=== PATIENT | female | born 1985 | race Two or more races ===

== ENCOUNTER → 2024-02-20 | Outpatient (CLI) | payer MEDICAID, SELFPAY ==
--- NOTE | 2024-02-20 15:58 | XR_ITS ---
Examination: Abdomen AP single view Technique: AP portable supine abdomen, single view Exam date and time: February 20, 2024 1452 hours INDICATIONS: Onset right flank pain today FINDINGS: Moderate stool in the colon overlying the kidneys Suspicious for 2 mm calculus lower pole left kidney No ureteral calculi, multiple small pelvic phleboliths IMPRESSION: Suspicious for 2 mm lower pole left renal calculus, consider renal sonography follow-up
== END | disposition home or self-care (01) ==
PROVIDERS: PCP Nurse Practitioner Family; Referring Provider Nurse Practitioner Family; Visit Provider Nurse Practitioner Family
DX: R30.0 Dysuria (principal)
CPT/HCPCS: 74018

== ENCOUNTER → 2024-03-27 | Outpatient (CLI) | payer MEDICAID, SELFPAY ==
--- NOTE | 2024-03-27 13:30 | XR_ITS ---
Examination: Retroperitoneal ultrasound, complete Technique: Multiple high resolution grayscale images of the retroperitoneum obtained, including kidneys and bladder. Exam date and time:March 27, 2024 1329 hours INDICATIONS: Left flank pain beginning 1.5 months ago, history urinary tract infection one month ago FINDINGS: Right kidney 12.3 x 4.0 x 4.6 cm renal cortex 1.2 cm 5 mm upper pole calculus Left kidney 12.1 x 4.2 x 4.7 cm renal cortex 2.0 cm Mild bilateral hydronephrosis No bladder mass or bladder calculi Bladder prevoid volume 552 cc postvoid volume 23 cc IMPRESSION: 5 mm upper pole nonobstructing right renal calculus Mild bilateral hydronephrosis
== END | disposition home or self-care (01) ==
PROVIDERS: PCP Nurse Practitioner Family; Visit Provider Nurse Practitioner Family
DX: N20.0 Calculus of kidney (principal); N13.30 Unspecified hydronephrosis
CPT/HCPCS: 76770

== ENCOUNTER → 2024-05-10 | Outpatient (CLI) | payer MEDICAID, SELFPAY ==
[2024-05-09 18:21] LABS: HCG Qualitative,Urine Negative
--- NOTE | 2024-05-10 17:00 | XR_ITS ---
Examination: CT abdomen and pelvis without contrast. Coronal 3-D reconstructions. Sagittal 2-D reconstructions. Date and time of exam:May 10, 2024 1705 hrs. Indications: Bilateral flank pain 3 months CTDI: vol (mGy): 6.32 DLP: (mGycm): 341 Technique: Axial images of the abdomen have been obtained, 3 mm slice thickness Intravenous contrast material has not been administered. Low dose protocols were performed. One or more of the following dose reduction techniques were used; automated exposure control, adjustment of the mA and/or KV according to patient size, use of iterative reconstruction technique. Findings: No focal liver or splenic lesions Absent gallbladder No pancreatic or adrenal mass 2 mm right renal calculus No hydronephrosis or ureteral calculi Aorta normal size Normal appendix No bowel obstruction Anteverted uterus with enlarged fundus No bladder mass or bladder calculi The osseous structures are intact Impression: 2 mm nonobstructing right renal calculus Enlarged fundus of uterus, recommend pelvic sonography follow-up
== END | disposition home or self-care (01) ==
LOC: CCTX 16:40
PROVIDERS: PCP Family Medicine; Referring Provider Nurse Practitioner Family; Visit Provider Nurse Practitioner Family
DX: N20.0 Calculus of kidney (principal); Z32.00 Encounter for pregnancy test, result unknown
CPT/HCPCS: 74176; 81025

== ENCOUNTER 2024-09-13 15:15 | Outpatient (AMB) | payer MEDICAID, SELFPAY ==
--- NOTE | 2024-09-13 15:13 | GYNCLNT_ITS ---
Vital Signs 09/13/24 15:32 Weight 66.451 kg Weight Measurement Method Standing Scale BP 110/77 Blood Pressure Source Automatic Cuff Blood Pressure Location Left Upper Arm Position Sitting Respiration 18 Pulse 83 Pulse Source Monitor Temp 97.2 F Temp Source Oral Pulse Oximetry (%) 97 Oxygen Delivery Method Room Air Allergies/Home Meds Allergies & Medications Allergies No Known Allergies Allergy (Verified 09/13/24 15:33) Medication Reconciliation vit no.95-ferrous fumarate 28 mg-folic acid 800 mcg tablet () 1 tab PO 1XD 03/06/23 [History Confirmed 09/13/24] docusate sodium 100 mg capsule (Colace) 100 mg PO BID #60 caps 03/07/23 [Rx Confirmed 09/13/24] ibuprofen 600 mg tablet 600 mg PO Q6H PRN pain #60 tabs 03/07/23 [Rx Confirmed 09/13/24] lanolin 50 % topical ointment 1 applic topical TID PRN skin irritation #15 tubes 03/07/23 [Rx Confirmed 09/13/24] Intake Visit Data Collection New Patient or Established: Established Patient (seen at [facility] within 3 years) Reason for Visit:: REFERRED BY PCP Seen by Clinical Staff ONLY (RN/MA): No Interdisciplinary Professor Required: Yes Interdisciplinary Professor's name/title: LIVIER GIBBS MA Do You Feel Safe at Home: Yes Authorities Contacted: N/A PCP or OBGYN visit in last 3 months: Yes Hx Now: No Are you currently on any form of Control: No Last menstrual period: 08/13/24 Pain Present Currently: No Pain Scale Used: Mcbride-Huertas/Numerical Pain scale:: 0 Smoking Status Smoking Status: Never smoker 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 Menstrual regularity: regular Flow: normal Monthly: Yes How many days does period last: 5 Age at menarche: 14 Menopausal: No 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 1. Little interest or pleasure in doing things: not at all 2. Feeling down, depressed, or hopeless: not at all Total score: 0 PHQ-9 3. Trouble falling or staying asleep, or sleeping too much: Not at all 4. Feeling tired or having little energy: Not at all 5. Poor appetite or overeating: Not at all 6. Feeling bad about yourself - or that you are a failure or have let yourself or your family down: Not at all 7. Trouble concentrating on things, such as reading the newspaper or watching television: Not at all 8. Moving or speaking so slowly that other people could have noticed? - Or the opposite - being so fidgety or restless that you have been moving around a lot more than usual: not at all 9. Thoughts that you would be better off or of hurting yourself in some way: Not at all Total score: 0 If you checked off any problems, how difficult have these problems made it for you to do your work, take care of things at home, or get along with other people?: not difficult at all Source: Developed by Drs. Pete Rodríguez, Danii Nava, Bandar Wright and colleagues, with an educational luís from [employer]. Depression screen completed yes Social History Living Situation History Marital Status: Single Lives With: Family Housing: House Tobacco History Smoking Status: Never smoker Second Hand Smoke Exposure: No Alcohol History Alcohol Intake: Never Domestic Abuse History Do You Feel Safe at Home: Yes History of Present Illness HPI Narrative 38-year-old female (), presents on referral from [facility] for evaluation of leiomyoma of uterus, unspecified right ovarian cyst, and left ovarian cyst. Her chief complaints are pelvic pain and dyspareunia. The patient reports a history of significant bleeding during some of her deliveries, after which she has not been feeling well. Her menstrual cycles have become irregular, coming 3-4 days early or sometimes later than expected, which is different from her pre- pattern. She experiences pain during intercourse. The patient also reports experiencing weight changes, blurry vision, and seeing spots in her eyes. To manage her pain, the patient has been taking 800mg of ibuprofen as needed. She is seeking a second opinion regarding her condition. The patient's most recent delivery was on March 07, 2023. Obstetric History - GPAL: A0 L4 - history: - Most recent delivery on March 07, 2020 - All four pregnancies resulted in vaginal deliveries - History of significant bleeding during some deliveries Medical History - Non-obstructing right renal calculus (2mm) found on CT scan during ER visit in 2024 - Leiomyoma of uterus (1.6cm) diagnosed on 06/22/2024 - Bilateral simple ovarian cysts diagnosed on 06/22/2024 Medications and Supplements - Ibuprofen 800 mg as needed for pain Social History - Children: Has 4 children Review of Systems General: Positive for weight gain. HEENT: Positive for blurry vision. Genitourinary: Positive for dyspareunia. Laboratory, Imaging, and Diagnostic Test Results - Date: 06/22/2024 - Ultrasound: 1.6 cm uterine leiomyoma, bilateral simple ovarian cysts - CT scan of abdomen and pelvis (05/10/2024): - 2 mm non-obstructing right renal calculus - Enlarged uterine fundus Review of Systems Review of Systems Systems Reviewed: All systems reviewed, normal except as documented Exam General General Appearance: alert, in no apparent distress and healthy appearing Head Head exam: atraumatic Neck Neck exam: Present normal inspection and trachea midline Chest Chest inspection: Present normal inspection and symmetric chest wall rise External exam: Present normal external exam; Absent tenderness Neuro Neurological exam: Present oriented X3 Psych Psychiatric exam: Present normal affect and normal mood Office Procedures OB Clinic LOC & Office Proc's Nursing/Assessment Patient Status: Established Patient OB Clinic Nursing Assessment: Medication Reconciliation, Update PMH in EMR and Vital Signs OB Clinic Coordination of Care: Education Complex Pt/Fam, Consent,records obtained, informed consent, Lab and Imaging orders, Results/Orders obtained and Staff clarify orders Special Needs: Language special needs Established Patient Charge Established Patient Point Assignment: 85 Established Patient Point Charge: EP Level 3 (80-115) Assessment & Plan Diagnosis / Problem List (1) Abnormal uterine and vaginal bleeding, unspecified: Status: Acute (2) Intramural leiomyoma of uterus: Status: Acute (3) Pelvic and perineal pain: Status: Acute (4) Dyspareunia due to medical condition in female: Status: Acute Plan 38-year-old female, , presenting with pelvic pain, dyspareunia, and irregular menstrual cycles, referred for evaluation of uterine leiomyoma and bilateral ovarian cysts. Pelvic pain and dyspareunia Assessment: Patient reports pelvic pain and dyspareunia. Onset appears to be related to period following last delivery in February 2023. Pain is managed with ibuprofen 800 mg PRN. Recent imaging (CT abdomen/pelvis from ER visit in April 2024) showed enlarged uterine fundus. Ultrasound from June 2024 revealed a 1.6 cm uterine leiomyoma and bilateral simple ovarian cysts. Differential diagnoses include leiomyoma-related pain, ovarian cyst complications, hormonal changes, and potential early perimenopausal symptoms. Plan: - Order pelvic ultrasound to reassess uterine leiomyoma and ovarian cysts - Order hormone panel blood tests to be done on day 1 or 2 of next menstrual cycle - Schedule follow-up appointment to review test results and discuss treatment plan Irregular menstrual cycles Assessment: Patient reports irregular menstrual cycles, with periods coming 3-4 days early or late. This is a change from her pre- menstrual pattern. Given her age (38) and reported symptoms (weight changes, blurry vision), we need to evaluate for potential perimenopausal changes or other hormonal imbalances. Plan: - Order hormone panel blood tests to be done on day 1 or 2 of next menstrual cycle - Evaluate results to determine cause of menstrual irregularities - Discuss findings and potential treatment options at follow-up appointment Uterine leiomyoma Assessment: Previous ultrasound from June 2024 showed a 1.6 cm uterine leiomyoma. This finding may be contributing to the patient's pelvic pain and menstrual irregularities. A repeat ultrasound is necessary to assess for any changes in size or characteristics. Plan: - Order pelvic ultrasound to reassess uterine leiomyoma - Compare new imaging with previous studies - Discuss management options based on updated findings at follow-up appointment Bilateral ovarian cysts Assessment: Ultrasound from June 2024 revealed bilateral simple ovarian cysts. These cysts may be contributing to the patient's pelvic pain and dyspareunia. A repeat ultrasound is necessary to evaluate for any changes or complications. Plan: - Order pelvic ultrasound to reassess ovarian cysts - Compare new imaging with previous studies - Discuss management options based on updated findings at follow-up appointment
[2024-09-13 15:32] VITALS: BP 110/77; PULSE 83; RESP 18; TEMP 36.2; O2SAT 97
== END 2024-09-13 15:47 | disposition home or self-care (01) ==
LOC: HODSOBC 15:15
PROVIDERS: PCP Family Medicine; Referring Provider Family Medicine; Supervising Provider Obstetrics & Gynecology; Visit Provider Obstetrics & Gynecology
DX: D25.1 Intramural leiomyoma of uterus (principal); N93.9 Abnormal uterine and vaginal bleeding, unspecified; N83.292 Other ovarian cyst, left side; N83.291 Other ovarian cyst, right side; N94.10 Unspecified dyspareunia
CPT/HCPCS: 99213; G0463

== ENCOUNTER → 2024-10-05 | Outpatient (CLI) | payer MEDICAID, SELFPAY ==
--- NOTE | 2024-10-05 15:45 | XR_ITS ---
Examination: Pelvic ultrasound, transabdominal, complete Technique: Transabdominal ultrasound of the pelvis performed using grayscale imaging Date and time of exam: October 05, 2024 1539 hours INDICATIONS: Pelvic pain and irregular menses one year, enlarged fundus of uterus on CT pelvis May 10, 2024 FINDINGS: Uterus 14.2 cm but no discrete uterine masses Endometrial stripe 1.2 cm Right ovary 3.1 cm arterial flow Left ovary 2.5 cm arterial flow No fluid in the cul-de-sac IMPRESSION: Diffusely enlarged uterus but no discrete uterine masses No intrauterine gestation
== END | disposition home or self-care (01) ==
LOC: CDIM 15:20
PROVIDERS: PCP Obstetrics & Gynecology; Referring Provider Obstetrics & Gynecology; Visit Provider Obstetrics & Gynecology
DX: N85.2 Hypertrophy of uterus (principal)
CPT/HCPCS: 76856

== ENCOUNTER 2024-11-07 11:01 | Outpatient (AMB) | payer MEDICAID, SELFPAY ==
[2024-11-07 11:24] VITALS: BP 118/80; PULSE 68; RESP 17; TEMP 36.7; O2SAT 98; BMI 27.2
--- NOTE | 2024-11-07 11:24 | AMB.GYNCLNOT ---
Vital Signs 11/07/24 11:24 Height 1.57 m Height Method Measured Weight 67.642 kg Weight Measurement Method Standing Scale BMI 27.2 BP 118/80 Blood Pressure Source Automatic Cuff Blood Pressure Location Right Upper Arm Position Sitting Respiration 17 Pulse 68 Pulse Source Monitor Temp 98.1 F Temp Source Temporal Artery Scan Pulse Oximetry (%) 98 Oxygen Delivery Method Room Air Allergies/Home Meds Allergies & Medications Allergies No Known Allergies Allergy (Verified 11/07/24 11:25) Medication Reconciliation vit no.95-ferrous fumarate 28 mg-folic acid 800 mcg tablet () 1 tab PO 1XD 03/06/23 [History Confirmed 11/07/24] docusate sodium 100 mg capsule (Colace) 100 mg PO BID #60 caps 03/07/23 [Rx Confirmed 11/07/24] ibuprofen 600 mg tablet 600 mg PO Q6H PRN pain #60 tabs 03/07/23 [Rx Confirmed 11/07/24] lanolin 50 % topical ointment 1 applic topical TID PRN skin irritation #15 tubes 03/07/23 [Rx Confirmed 11/07/24] Intake Visit Data Collection New Patient or Established: Established Patient (seen at [facility] within 3 years) Reason for Visit:: FOLLOW UP LABS\US RESULTS Consent obtained for Telemed Visit: No Seen by Clinical Staff ONLY (RN/MA): No Shoe Designer Required: Yes Shoe Designer's name/title: LIVIER BARTHOLOMEW Do You Feel Safe at Home: Yes Authorities Contacted: N/A PCP or OBGYN visit in last 3 months: Yes Date of Last PCP or OBGYN visit: 09/13/24 Hx Now: No Are you currently on any form of Control: No Last menstrual period: 10/15/24 Pain Present Currently: No Pain Scale Used: Mcbride-Huertas/Numerical Pain scale:: 0 Smoking Status Smoking Status: Never smoker 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 Menstrual regularity: regular Flow: normal Monthly: Yes How many days does period last: 5 Age at menarche: 14 Menopausal: No 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 1. Little interest or pleasure in doing things: not at all PHQ-9 8. Moving or speaking so slowly that other people could have noticed? - Or the opposite - being so fidgety or restless that you have been moving around a lot more than usual: not at all Source: Developed by Drs. Pete Rodríguez, Danii Nava, Bandar Wright and colleagues, with an educational luís from [employer]. Social History Living Situation History Lives With: Family Housing: House Tobacco History Smoking Status: Never smoker Second Hand Smoke Exposure: No Alcohol History Alcohol Intake: Never Domestic Abuse History Do You Feel Safe at Home: Yes History of Present Illness HPI Narrative Erna Stover presents for review of lab results following previous complaints of pelvic pain, abnormal uterine bleeding, and uterine leiomyomas. She reports experiencing significant pain during sexual intercourse and when her abdomen is impacted, such as when her children hit her in that area. The patient mentions a history of prolonged bleeding lasting up to 7 months, which may have started during or after a . The patient's symptoms appear to be consistent with adenomyosis, as explained by the clinician. This condition affects the patient's quality of life, particularly in relation to sexual activity and physical contact in the abdominal area. The exact onset of her symptoms is not clearly stated, but there is an indication that the changes may have occurred during or after a . She is a patient with an obstetric history of A0 L1. She has one that lasted for 7 months, resulting in a live . The patient has children and reports pain during intercourse. ROS: Genitourinary: Positive for pelvic pain, abnormal uterine bleeding. Musculoskeletal: Positive for abdominal pain when touched. Exam General General Appearance: alert, in no apparent distress and healthy appearing Head Head exam: atraumatic Neck Neck exam: Present normal inspection and trachea midline Chest Chest inspection: Present normal inspection and symmetric chest wall rise External exam: Present normal external exam; Absent tenderness Neuro Neurological exam: Present oriented X3 Psych Psychiatric exam: Present normal affect and normal mood Office Procedures OB Clinic LOC & Office Proc's Nursing/Assessment Patient Status: Established Patient OB Clinic Nursing Assessment: Medication Reconciliation, Update PMH in EMR and Vital Signs OB Clinic Coordination of Care: Complex Care and Chronic Disease 1-5, Consent,records obtained, informed consent, 4+ Authorizations needed, Lab and Imaging orders and Results/Orders obtained Established Patient Charge Established Patient Point Assignment: 105 Established Patient Point Charge: Level 3 (80-115) Assessment & Plan Diagnosis / Problem List (1) Dyspareunia due to medical condition in female: Status: Acute (2) Pelvic and perineal pain: Status: Acute Plan Adenomyosis: - Pelvic pain, abnormal uterine bleeding, and pain during intercourse and abdominal impact. - Ultrasound findings of enlarged uterus without distinct fibroids. - Previously diagnosed leiomyomas of the uterus. - Condition described as irreversible, likely developing during or after . Plan: - Discuss two treatment options: ? Hysterectomy (surgical removal of uterus) - Permanent cure - Unable to have children post-surgery - Ovaries to be preserved to maintain hormonal function - Expected recovery time of approximately one month ? Hormone suppression therapy (Lupron, GnRH agonist) - Temporary induced menopause-like state - 6-month course of injections - Expected relief for up to 3 years - Potential side effects: initial hot flushes, cessation of menstruation - Uterus expected to shrink significantly - Advise patient to consider options and discuss with . - Schedule follow-up appointment after patient makes decision.
== END 2024-11-07 11:34 | disposition home or self-care (01) ==
LOC: HODSOBC 11:01
PROVIDERS: Supervising Provider Obstetrics & Gynecology; Visit Provider Obstetrics & Gynecology
DX: N94.19 Other specified dyspareunia (principal); R10.2 Pelvic and perineal pain
CPT/HCPCS: 99213; G0463

== ENCOUNTER → 2024-11-28 | Outpatient (CLI) | payer MEDICAID, SELFPAY ==
--- NOTE | 2024-11-28 16:40 | XR_ITS ---
Examination: Abdomen AP single view Technique: AP portable supine abdomen, single view Exam date and time: November 28, 2024, 1700 hours INDICATIONS: Abdominal pain beginning 2 months ago. FINDINGS: Moderate to large amounts of stool throughout the colon. No renal calculi depicted. No free air. Surgical clips upper right abdomen. IMPRESSION: Consider renal sonography follow-up to best assess for renal calculi
== END | disposition home or self-care (01) ==
PROVIDERS: PCP Specialist; Referring Provider Surgery; Visit Provider Surgery
DX: N20.0 Calculus of kidney (principal)
CPT/HCPCS: 74018

== ENCOUNTER 2024-12-26 08:43 | Outpatient (AMB) | payer MEDICAID, SELFPAY ==
[2024-12-26 08:54] VITALS: BP 121/84; PULSE 72; RESP 17; TEMP 36.6; O2SAT 98; BMI 27.8
--- NOTE | 2024-12-26 08:54 | AMB.GYNCLNOT ---
Vital Signs 12/26/24 08:54 Height 1.57 m Height Method Stated Weight 68.549 kg Weight Measurement Method Standing Scale BMI 27.8 BP 121/84 Blood Pressure Source Automatic Cuff Blood Pressure Location Right Upper Arm Position Sitting Respiration 17 Pulse 72 Pulse Source Monitor Temp 97.9 F Temp Source Temporal Artery Scan Pulse Oximetry (%) 98 Allergies/Home Meds Allergies & Medications Allergies No Known Allergies Allergy (Verified 12/26/24 08:56) Medication Reconciliation No Known Home Medications 12/25/24 [History Confirmed 12/26/24] Intake Visit Data Collection New Patient or Established: Established Patient (seen at [facility] within 3 years) Reason for Visit:: PREOP 12/27/24 Seen by Clinical Staff ONLY (RN/MA): No Plastic Frame Inserter Required: Yes Plastic Frame Inserter's name/title: LIVIER GIBBS MA Do You Feel Safe at Home: Yes Authorities Contacted: N/A PCP or OBGYN visit in last 3 months: Yes Date of Last PCP or OBGYN visit: 12/25/24 Hx Now: No Are you currently on any form of Control: No Last menstrual period: 12/19/24 Pain Present Currently: Yes Pain Location: Abdomen Pain Scale Used: Mcbride-Huertas/Numerical Pain scale:: 3 Smoking Status Smoking Status: Never smoker 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 History Menstrual regularity: regular Flow: normal Monthly: Yes How many days does period last: 4 Age at menarche: 14 Currently sexually active: Yes 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 1. Little interest or pleasure in doing things: not at all 2. Feeling down, depressed, or hopeless: not at all Total score: 0 PHQ-9 3. Trouble falling or staying asleep, or sleeping too much: Not at all 4. Feeling tired or having little energy: Not at all 5. Poor appetite or overeating: Not at all 6. Feeling bad about yourself - or that you are a failure or have let yourself or your family down: Not at all 7. Trouble concentrating on things, such as reading the newspaper or watching television: Not at all 8. Moving or speaking so slowly that other people could have noticed? - Or the opposite - being so fidgety or restless that you have been moving around a lot more than usual: not at all 9. Thoughts that you would be better off or of hurting yourself in some way: Not at all Total score: 0 If you checked off any problems, how difficult have these problems made it for you to do your work, take care of things at home, or get along with other people?: not difficult at all Source: Developed by Drs. Pete Rodríguez, Danii Nava, Bandar Wright and colleagues, with an educational luís from [employer]. Depression screen completed yes Social History Living Situation History Marital Status: Lives With: Family Housing: House Tobacco History Smoking Status: Never smoker Second Hand Smoke Exposure: No Alcohol History Alcohol Intake: Never Domestic Abuse History Do You Feel Safe at Home: Yes History of Present Illness HPI Narrative Abby Stover presents for pre-operative evaluation prior to a scheduled total abdominal hysterectomy and bilateral salpingectomy. The patient's primary indications for surgery are symptomatic leiomyomas, pelvic pain, and severe dyspareunia. The patient has been previously counseled about all treatment options and has declined medical intervention, opting for surgical management. She is scheduled for surgery tomorrow, which will involve an abdominal incision smaller than a typical incision. The surgical plan includes preserving the ovaries, with the removal of a cyst while saving the affected ovary. This approach aims to prevent premature menopause, given the patient's age under 40 years. The patient has completed her pre-admission procedures and appears prepared for the upcoming surgery. She is expected to stay in the hospital until Tuesday morning, with a possibility of discharge on Tuesday if her recovery progresses exceptionally well. A two-month disability period has been initially planned, with the option to adjust as needed based on her recovery progress. She has a history of one prior delivery. The patient is scheduled for disability leave for 2 months following surgery. ROS: Genitourinary: Positive for pelvic pain, severe dyspareunia. Exam General General Appearance: alert, in no apparent distress and healthy appearing Head Head exam: atraumatic Neck Neck exam: Present normal inspection and trachea midline Chest Chest inspection: Present normal inspection and symmetric chest wall rise External exam: Present normal external exam; Absent tenderness Neuro Neurological exam: Present oriented X3 Psych Psychiatric exam: Present normal affect and normal mood Office Procedures OBC Clinic LOC & Office Proc's Nursing/Assessment Patient Status: Established Patient OB Clinic Nursing Assessment: Medication Reconciliation, Update PMH in EMR and Vital Signs OB Clinic Coordination of Care: Complex Care and Chronic Disease 1-5, Education Complex Pt/Fam, Consent,records obtained, informed consent and Staff clarify orders Established Patient Charge Established Patient Point Assignment: 90 Established Patient Point Charge: EP Level 3 (80-115) Assessment & Plan Diagnosis / Problem List (1) Dyspareunia due to medical condition in female: Status: Acute (2) Pelvic and perineal pain: Status: Acute Plan Symptomatic Uterine Leiomyomas: - Patient has symptomatic uterine leiomyomas causing pelvic pain and severe dyspareunia. - Previously counseled about all treatment options and declined medical intervention, opting for surgical management. Plan: - Total abdominal hysterectomy scheduled for tomorrow morning. - Preserve ovaries given patient age under 40 to avoid premature menopause. - Expected hospital stay until Tuesday morning, possible Tuesday discharge if doing exceptionally well. - Two-month disability period planned, with option to release sooner or extend as needed. Ovarian Cyst: - Patient has an ovarian cyst that will be addressed during planned hysterectomy. Plan: - Remove cyst during hysterectomy while preserving ovary.
== END 2024-12-26 09:37 | disposition home or self-care (01) ==
LOC: HODSOBC 08:43
PROVIDERS: Supervising Provider Obstetrics & Gynecology; Visit Provider Obstetrics & Gynecology
DX: D25.9 Leiomyoma of uterus, unspecified (principal); N94.19 Other specified dyspareunia; N83.209 Unspecified ovarian cyst, unspecified side
CPT/HCPCS: 99213; G0463

== ENCOUNTER 2024-12-27 06:20 | Inpatient (IN) | payer MEDICAID, SELFPAY ==
[2024-12-25 07:01] VITALS: BMI 26.4
[2024-12-25 08:24] LABS: Basophils # (Auto) 0.0 Thou/mm3 (0.0-0.2); Basophils % (Auto) 1 % (0-2.5); Eosinophils # (Auto) 0.1 Thou/mm3 (0.0-0.5); Eosinophils % (Auto) 2 % (0-10); Hematocrit 37.1 % (36.0-46.0); Hemoglobin 11.7 g/dL (12.0-16.0); Immature Granulocytes Auto 0.01 Thou/mm3 (0.00-0.00); Lymphocytes # (Auto) 1.9 Thou/mm3 (1.0-4.8); Lymphocytes % (Auto) 49 % (10-50); Mean Corpuscular HGB Conc 31.5 g/dl (31.0-37.0); Mean Corpuscular Hemoglobin 28.5 pg (25.0-35.0); Mean Corpuscular Volume 90 fL (80-100); Monocytes # (Auto) 0.2 Thou/mm3 (0.0-0.8); Monocytes % (Auto) 6 % (0-12); Neutrophils # (Auto) 1.6 Thou/mm3 (1.8-7.7); Neutrophils % (Auto) 42 % (37-80); Nucleated Red Blood Cell # 0.00 Thou/mm3 (0.00-0.00); Nucleated Red Blood Cell % 0 /100 WBC (0); Platelet Count 207 Thou/mm3 (140-440); RDW Standard Deviation 45.3 fL (36.4-46.3); Red Blood Count 4.11 Miln/mm3 (4.00-5.20); White Blood Count 3.9 Thou/mm3 (3.6-11.0)
[2024-12-25 08:31] LABS: HCG,Qualitative Serum Negative
[2024-12-25 08:42] LABS: Alanine Aminotransferase 8 U/L (10-49); Albumin, Serum 4.4 gm/dL (3.5-5.0); Albumin/Globulin Ratio 1.6 (1.2-2.2); Alkaline Phosphatase 37 U/L (46-116); Anion Gap 9 (7-16); Aspartate Amino Transferase 15 U/L (0-34); BUN/Creatinine Ratio 18 Ratio (12-20); Bilirubin,Total 0.6 mg/dL (0.3-1.2); Blood Urea Nitrogen 14 mg/dL (9-23); Calcium 9.1 mg/dL (8.3-10.6); Calcium (Corrected) 9.1 mg/dL (8.5-10.1); Carbon Dioxide 26.2 mMol/L (20.0-31.0); Chloride 108 mMol/L (98-107); Creatinine (Component) 0.8 mg/dL (0.6-1.3); Estimated Creatinine Clearance 91.4 mL/min (>60); Globulin 2.8 gm/dL (2.3-3.5); Glucose 89 mg/dL (74-106); Osmolality,Calculated 284 (275-295); Potassium 3.9 mMol/L (3.4-5.1); Sodium 143 mMol/L (136-145); Total Protein 7.2 gm/dL (5.7-8.2); eGFR > 60 See Note
[2024-12-27] VITALS (10 sets, daily range): BP systolic 101–121; BP diastolic 62–91; PULSE 66–94; RESP 12–20; TEMP 36.1–36.7; O2SAT 95–100; BMI 25.9; BMI 25.7
--- NOTE | 2024-12-27 09:45 | ESOP_ITS ---
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 Identity was confirmed using two patient identifiers. General anesthesia was administered, and the patient was placed in the supine position. The abdomen and perineum were prepped and draped in the usual sterile fashion. A Guerrero catheter was inserted for continuous bladder drainage. A surgical timeout was completed. A Pfannenstiel skin incision was made and carried sharply through the subcutaneous tissue. The rectus fascia was incised in the midline and extended laterally using Chamberlain scissors. The fascia was dissected off the underlying rectus muscle using sharp dissection. The peritoneum was entered bluntly. An Ferdinand retractor was placed for exposure. The uterus was grasped with a double- toothed tenaculum and placed under traction. The pelvic anatomy was reviewed, and the bowel was packed away from the operative field. The patient was placed in Trendelenburg position for improved visualization. Dissection was initiated on the right side. The right fallopian tube was dissected and divided, followed by the right utero-ovarian ligament, and then the right round ligament. The anterior peritoneum was opened, and the bladder flap was developed anteriorly using sharp and blunt dissection. Attention was then turned to the left side. The left round ligament was divided, and the bladder flap was further developed to completely reflect the bladder inferiorly. The left utero-ovarian ligament was then divided, followed by dissection and division of the left fallopian tube. Dissection was now carried down both sides of the uterus. On the right, dissection continued until the uterine artery was skeletonized, clamped, and divided. The same procedure was performed on the left side. Once the level of the cervix was reached, a pair of Z-clamps were placed across the cervix, and the uterus was amputated using Logan scissors. The vaginal angles were ligated separately using 0-Vicryl in a Jeramie stitch fashion. The remaining vaginal cuff was closed in a running locked fashion using 0-Vicryl. The cuff was copiously irrigated and noted to be hemostatic, and Surgicel was placed over the suture line. All instruments were withdrawn. The peritoneal cavity was suctioned and dried. The rectus fascia was closed using 0-Vicryl in a running fashion. The subcutaneous layer was reapproximated using 2-0 Vicryl, and the skin was closed using 4-0 Monocryl in a subcuticular fashion. A Dermabond Prineo dressing was applied. The patient was awakened from anesthesia and transferred to the recovery unit in stable condition. She tolerated the procedure well. All instrument, sponge, and lap counts were correct ?2. Specimen: uterus, left tube and right tube Estimated blood loss (ml): 150 Complications: none Surgical staff Operation Date: 12/27/24 08:30 Case Staff EPIC KALEIDOSCOPE ANALYST: Raymundo Roche RN First Assistant: Tammy Capone Diagnosis Discharge Diagnosis (1) Dyspareunia due to medical condition in female: Status: Acute (2) Pelvic and perineal pain: Status: Acute (3) Abnormal uterine and vaginal bleeding, unspecified: Status: Acute (4) Intramural leiomyoma of uterus: Status: Acute Problem List Completed Was Problem List Reviewed/Reconciled?: Yes
--- NOTE | 2024-12-27 10:00 | SUR.PHASEI ---
1000: Pt. AAOX4, vitals stable, breathing unlabored, no complaint of pain or nausea, dressing to ABD CDI, no active bleed noted, ABD Binder in place, peripad in place with scant amount of blood, daniel catheter in place, report received from Zechariah ROLLE and Debra ROE.
[2024-12-27] MEDS: HYDROmorphone INJ 2 MG/ML VIAL 0.4 MG IVP ×3 (10:14→10:37)
[2024-12-27] MEDS: SODIUM CHLORIDE 0.9% 1000 ML 1,000 ML 200 ML IV ×3 (10:27→21:18)
--- NOTE | 2024-12-27 10:55 | SUR.PHASEI ---
1055: Pt. AAOx4, vitals stable, breathing unlabored, no complaint of pain or nausea, dressing to ABD CDI, peripad in place CDI, no active bleed noted, daniel catheter in place, pt. tolerated bites of ice chips well, gave report to Kaylin ROE prior to transfer to room, family made aware of transfer to room. Pt. transferred with all personal belongings.
[2024-12-27] MEDS: ONDANSETRON INJ 2 MG/ML INJ 2 ML 4 MG IV ×2 (11:21→23:33)
[2024-12-27] MEDS: HYDROMORPHONE HCL 2 MG TABLET PO ×2 (13:55→21:17)
[2024-12-27] MEDS: Milk Of Magnesia Susp 30 ML UDC PO (13:55)
[2024-12-27] MEDS: ACETAMINOPHEN IVPB 1,000 MG/100 ML VIAL 250 MG IV ×2 (16:09→22:02)
[2024-12-27] MEDS: PROMETHAZINE INJ 25 MG in SODIUM CHLORIDE 0.9% 50 ML IV (17:37)
[2024-12-28] VITALS (7 sets, daily range): BP systolic 94–118; BP diastolic 66–82; PULSE 71–86; RESP 18–97; TEMP 36.4–37.3; O2SAT 95–98
[2024-12-28] MEDS: ACETAMINOPHEN IVPB 1,000 MG/100 ML VIAL 250 MG IV (03:46)
[2024-12-28] MEDS: SODIUM CHLORIDE 0.9% 1000 ML 1,000 ML 200 ML IV (03:48)
[2024-12-28 05:49] LABS: Basophils # (Auto) 0.0 Thou/mm3 (0.0-0.2); Basophils % (Auto) 0 % (0-2.5); Eosinophils # (Auto) 0.0 Thou/mm3 (0.0-0.5); Eosinophils % (Auto) 0 % (0-10); Hematocrit 29.2 % (36.0-46.0); Hemoglobin 9.3 g/dL (12.0-16.0); Immature Granulocytes Auto 0.01 Thou/mm3 (0.00-0.00); Lymphocytes # (Auto) 1.5 Thou/mm3 (1.0-4.8); Lymphocytes % (Auto) 32 % (10-50); Mean Corpuscular HGB Conc 31.8 g/dl (31.0-37.0); Mean Corpuscular Hemoglobin 28.8 pg (25.0-35.0); Mean Corpuscular Volume 90 fL (80-100); Monocytes # (Auto) 0.4 Thou/mm3 (0.0-0.8); Monocytes % (Auto) 8 % (0-12); Neutrophils # (Auto) 2.9 Thou/mm3 (1.8-7.7); Neutrophils % (Auto) 60 % (37-80); Nucleated Red Blood Cell # 0.00 Thou/mm3 (0.00-0.00); Nucleated Red Blood Cell % 0 /100 WBC (0); Platelet Count 152 Thou/mm3 (140-440); RDW Standard Deviation 46.1 fL (36.4-46.3); Red Blood Count 3.23 Miln/mm3 (4.00-5.20); White Blood Count 4.8 Thou/mm3 (3.6-11.0)
[2024-12-28 06:03] LABS: Anion Gap 8 (7-16); BUN/Creatinine Ratio 9 Ratio (12-20); Blood Urea Nitrogen 6 mg/dL (9-23); Calcium 7.7 mg/dL (8.3-10.6); Carbon Dioxide 24.3 mMol/L (20.0-31.0); Chloride 112 mMol/L (98-107); Creatinine (Component) 0.7 mg/dL (0.6-1.3); Estimated Creatinine Clearance 103.6 mL/min (>60); Glucose 94 mg/dL (74-106); Osmolality,Calculated 284 (275-295); Potassium 3.8 mMol/L (3.4-5.1); Sodium 144 mMol/L (136-145); eGFR > 60 See Note
[2024-12-28] MEDS: ONDANSETRON INJ 2 MG/ML INJ 2 ML 4 MG IV (08:56)
[2024-12-28] MEDS: DOCUSATE SOD 100 MG CAPSULE PO (08:57)
[2024-12-28] MEDS: Milk Of Magnesia Susp 30 ML UDC PO (08:57)
[2024-12-28] MEDS: HYDROcodone/APAP 5/325 TABLET 1 TAB PO (08:57)
--- NOTE | 2024-12-28 09:52 | PD.GYNPROG ---
Documentation for date of: 12/28/24 CLINICAL PROJECT LEADER Subjective Subjective Interval history: Patient doing well this morning. Pain is adequately controlled on the current regimen. No incisional complaints, no chest pain, shortness of breath, breathing difficulties. Ambulating, tolerating p.o., Adequate UOP Exam Vital Signs Temp Pulse Resp BP Pulse Ox O2 Del Method O2 Flow Rate 97.5 F 72 18 118/82 98 Room Air 2 12/28/24 08:00 12/28/24 08:00 12/28/24 08:00 12/28/24 08:00 12/28/24 08:00 12/28/24 08:00 12/27/24 10:15 Constitutional Constitutional: no acute distress Routine HEENT Exam Head: Present normocephalic and atraumatic Eye: Present EOMI and PERRL ENT: Present mucous membranes moist Routine Neck Exam Neck: Present supple and trachea midline Routine Respiratory Exam Respiratory: Present chest non-tender, lungs clear, normal breath sounds and no resp distress Routine Cardiovascular Exam Cardiovascular: Present RRR Routine Abdominal Exam Abdominal: Present soft and normoactive bowel sounds Routine Extremities Exam Extremities: Present full ROM Routine Skin Exam Skin: Present intact and dry Routine Neurological Exam Neurological: Present alert, oriented X3 and CN II-XII intact Routine Psychiatric Exam Psychiatric: Present normal affect and normal thought process Urinary Catheter Management Cath placed during this visit: yes, but has since been removed by the nurse Removal date: 12/28/24 Removal time: 06:15 CLINICAL PROJECT LEADER - PN: Obj Data Labs 12/28/24 04:55 12/28/24 04:55 Labs: Laboratory Results - last 24 hr 12/28/24 04:55 WBC 4.8 RBC 3.23 L Hgb 9.3 L D Hct 29.2 L MCV 90 MCH 28.8 MCHC 31.8 RDW Std Deviation 46.1 Plt Count 152 D Neut % (Auto) 60 Lymph % (Auto) 32 [facility] % (Auto) 8 Eos % (Auto) 0 Baso % (Auto) 0 Neut # (Auto) 2.9 Lymph # (Auto) 1.5 [facility] # (Auto) 0.4 Eos # (Auto) 0.0 Baso # (Auto) 0.0 Immature Gran # (Auto) 0.01 H Absolute Nucleated RBC 0.00 Immature Gran % 0 Nucleated RBC % 0 Sodium 144 Potassium 3.8 Chloride 112 H Carbon Dioxide 24.3 Anion Gap 8 BUN 6 L Creatinine 0.7 Estim Creat Clear Calc 103.6 eGFR > 60 BUN/Creatinine Ratio 9 L Glucose 94 Calculated Osmolality 284 Calcium 7.7 L CLINICAL PROJECT LEADER - A/P Assessment and plan (1) Dyspareunia due to medical condition in female: Status: Acute (2) Pelvic and perineal pain: Status: Acute (3) Abnormal uterine and vaginal bleeding, unspecified: Status: Acute (4) Intramural leiomyoma of uterus: Status: Acute (5) S/P DAKOTAH (total abdominal hysterectomy): Status: Acute Assessment and plan: Patient is postoperative day #1. Doing well and meeting postoperative milestones. Will transition to oral pain medications, Guerrero catheter has been removed and she has been voiding Labs are appropriate for her postoperative status Encouraged to ambulate, encourage oral intake. Discharge pending return of bowel function Postoperative Procedures: Procedures Operation Date: 12/27/24 08:30 Actual Procedure Side Surgeon p Hysterectomy, Abdominal, Bilateral Salpingectomy Vel Ohara MD Time Spent With Patient Time: Total time spent is greater than 50% in coordination of care (as documented) at patient's floor/unit and/or counseling patient: Time with patient: less than 15 minutes
[2024-12-28] MEDS: KETOROLAC INJ 30 MG/ML VIAL IVP ×2 (11:24→17:01)
--- NOTE | 2024-12-28 12:22 | CHAP ---
Patient was visited by the Spiritual Care Volunteer from whom they received communion. (Volunteer was in the hospital from 10:20-12:22)
--- NOTE | 2024-12-28 15:09 | PC.NURSE ---
Per Dr. Ohara, discharge patient at [phone]. Patient aware.
--- NOTE | 2024-12-28 16:03 | PC.SS ---
SS met with patient who is alert/oriented. Patient was able to verify demographics. Patient is Polish speaking only. Patient is independent with ADL's. Patient had surgery for hysterectomy yesterday. Patient stable. Patient will discharge home with family. PCP: Dr. Ambriz. No Dc needs.
--- NOTE | 2024-12-28 17:41 | PC.NURSE ---
Patient was discharged at 1716. IV removed. All discharge papers signed. Patient verbalized understanding and all questions were answered.
--- NOTE | 2024-12-30 12:22 | CHAP ---
Patient was visited by the Spiritual Care Volunteer who prayed silently for them. (Volunteer was in the hospital from 10:20-12:22).
== END 2024-12-28 17:16 | disposition home or self-care (01) | DRG 519 ==
LOC: S2W1 06:36 → S3SX 11:13
PROVIDERS: Admitting Provider Obstetrics & Gynecology; PCP Family Medicine; Visit Provider Obstetrics & Gynecology
PROC: 0UT90ZZ Resection of Uterus, Open Approach (ICD-10-PCS; principal; 2024-12-27 08:30)
DX: D25.1 Intramural leiomyoma of uterus (principal); N80.03 Adenomyosis of the uterus
CPT/HCPCS: 36415; 80048; 80053; 84703; 85025; 86850; 86900; 86901; A4217; A4649; J0131; J0690; J1171; J1885; J2250; J2274; J2405; J2550; J2704; J3010; J3490; J7030; A9270; J1596; J2270

== ENCOUNTER 2025-01-09 09:55 | Outpatient (AMB) | payer MEDICAID, SELFPAY ==
[2025-01-09 10:19] VITALS: BP 120/71; PULSE 102; RESP 18; TEMP 36.2; O2SAT 98
--- NOTE | 2025-01-09 10:19 | GYNCLNT_ITS ---
Vital Signs 01/09/25 10:19 Weight 68.492 kg Weight Measurement Method Standing Scale BP 120/71 Blood Pressure Source Automatic Cuff Blood Pressure Location Left Upper Arm Position Sitting Respiration 18 Pulse 102 H Pulse Source Monitor Temp 97.2 F Temp Source Oral Pulse Oximetry (%) 98 Oxygen Delivery Method Room Air Allergies/Home Meds Allergies & Medications Allergies No Known Allergies Allergy (Verified 01/09/25 10:20) Medication Reconciliation docusate sodium 100 mg capsule (Stool Softener) 100 mg PO QDAY 30 days #30 caps 12/28/24 [Rx Confirmed 01/09/25] Intake Visit Data Collection New Patient or Established: Established Patient (seen at [facility] within 3 years) Reason for Visit:: POST OP Seen by Clinical Staff ONLY (RN/MA): No Strategic 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 Required: No Do You Feel Safe at Home: Yes Authorities Contacted: N/A PCP or OBGYN visit in last 3 months: Yes Date of Last PCP or OBGYN visit: 12/28/24 Hx Now: Yes Are you currently on any form of Control: No Pain Present Currently: No Pain Scale Used: Mcbride-Huertas/Numerical Pain scale:: 0 Smoking Status Smoking Status: Never smoker Immunizations Flu Vaccine in the Last 12 Months: No Flu Vaccine Exclusion Criteria: No Exclusion Criteria 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 Menstrual regularity: regular Flow: normal Monthly: Yes How many days does period last: 5 Age at menarche: 16 Menopausal: No 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 1. Little interest or pleasure in doing things: not at all 2. Feeling down, depressed, or hopeless: not at all Total score: 0 PHQ-9 3. Trouble falling or staying asleep, or sleeping too much: Not at all 4. Feeling tired or having little energy: Not at all 5. Poor appetite or overeating: Not at all 6. Feeling bad about yourself - or that you are a failure or have let yourself or your family down: Not at all 7. Trouble concentrating on things, such as reading the newspaper or watching television: Not at all 8. Moving or speaking so slowly that other people could have noticed? - Or the opposite - being so fidgety or restless that you have been moving around a lot more than usual: not at all 9. Thoughts that you would be better off or of hurting yourself in some way: Not at all Total score: 0 If you checked off any problems, how difficult have these problems made it for you to do your work, take care of things at home, or get along with other people?: not difficult at all Source: Developed by Drs. Pete Rodríguez, Danii Nava, Bandar Wright and colleagues, with an educational luís from [employer]. Depression screen completed yes Social History Living Situation History Lives With: Family Housing: House Tobacco History Smoking Status: Never smoker Second Hand Smoke Exposure: No Alcohol History Alcohol Intake: Never Domestic Abuse History Do You Feel Safe at Home: Yes History of Present Illness HPI Narrative Abby Stover presents for postoperative visit status post total abdominal hysterectomy performed on 12-27, making her 12 days post-operative. She reports experiencing morning nausea, which she attributes to her medications. She denies vomiting or constipation. The patient is eating normally otherwise. She continues to wear her abdominal support belt as instructed and reports that it helps with pain management. She has a history of total abdominal hysterectomy on 12/27/2024, currently 12 days postoperative with good healing and no complications noted. The patient has been taking Benadryl for nausea management. ROS: General: Positive for morning nausea. Gastrointestinal: Negative for vomiting, constipation. Exam General General Appearance: alert, in no apparent distress and healthy appearing Head Head exam: atraumatic Neck Neck exam: Present normal inspection and trachea midline Chest Chest inspection: Present normal inspection and symmetric chest wall rise External exam: Present normal external exam; Absent tenderness Neuro Neurological exam: Present oriented X3 Psych Psychiatric exam: Present normal affect and normal mood Office Procedures OBC Clinic LOC & Office Proc's Nursing/Assessment Patient Status: Established Patient OB Clinic Nursing Assessment: Medication Reconciliation, Update PMH in EMR and Vital Signs OB Clinic Coordination of Care: Consent,records obtained, informed consent, Education Simp Pt/Fam, Lab and Imaging orders, Results/Orders obtained and Staff clarify orders Established Patient Charge Established Patient Point Assignment: 80 Established Patient Point Charge: EP Level 3 (80-115) Assessment & Plan Diagnosis / Problem List (1) S/P DAKOTAH (total abdominal hysterectomy): Status: Acute (2) Dyspareunia due to medical condition in female: Status: Acute (3) Pelvic and perineal pain: Status: Acute (4) Abnormal uterine and vaginal bleeding, unspecified: Status: Acute (5) Intramural leiomyoma of uterus: Status: Acute Plan Status post total abdominal hysterectomy: - Patient is 12 days postoperative from total abdominal hysterectomy. - Pathology report shows no cancer or malignancy in the uterus and removed tissue. - Morning nausea, likely related to postoperative medications. - Physical examination reveals good healing with skin edges well-approximated at the incision site. Plan: - Continue wearing abdominal support belt for one month from surgery date. - May shower with water and soap, ensure incision area is completely dry before dressing. - Morning nausea should gradually resolve as related to postoperative medications. - Follow-up appointment scheduled in one month. - Patient provided copy of pathology report.
== END 2025-01-09 10:44 | disposition home or self-care (01) ==
LOC: HODSOBC 09:55
PROVIDERS: Supervising Provider Obstetrics & Gynecology; Visit Provider Obstetrics & Gynecology
DX: Z48.816 Encounter for surgical aftercare following surgery on the genitourinary system (principal); R11.0 Nausea; Z90.710 Acquired absence of both cervix and uterus
CPT/HCPCS: 99213; G0463

== ENCOUNTER 2025-02-11 09:12 | Outpatient (AMB) | payer MEDICAID, SELFPAY ==
--- NOTE | 2025-02-11 09:29 | GYNCLNT_ITS ---
Vital Signs 02/11/25 09:58 Weight 69.91 kg Weight Measurement Method Standing Scale BP 125/81 Blood Pressure Source Automatic Cuff Blood Pressure Location Left Upper Arm Position Sitting Respiration 18 Pulse 94 Pulse Source Monitor Temp 97.2 F Temp Source Oral Pulse Oximetry (%) 98 Oxygen Delivery Method Room Air Allergies/Home Meds Allergies & Medications Allergies No Known Allergies Allergy (Verified 02/11/25 09:59) Medication Reconciliation No Known Home Medications 02/11/25 [History Confirmed 02/11/25] Intake Visit Data Collection New Patient or Established: Established Patient (seen at [facility] within 3 years) Reason for Visit:: OBC Seen by Clinical Staff ONLY (RN/MA): No Insurance Verifier Required: Yes Insurance Verifier's name/title: LENY GIBBS MA Do You Feel Safe at Home: Yes Authorities Contacted: N/A PCP or OBGYN visit in last 3 months: Yes Date of Last PCP or OBGYN visit: 01/09/25 Hx Now: No Are you currently on any form of Control: No Pain Present Currently: No Pain Scale Used: Mcbride-Huertas/Numerical Pain scale:: 0 Smoking Status Smoking Status: Never smoker Immunizations Flu Vaccine in the Last 12 Months: No Flu Vaccine Exclusion Criteria: No Exclusion Criteria 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 Menstrual regularity: regular Flow: normal Monthly: No Age at menarche: 13 Menopausal: No Currently sexually active: Yes [employer]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 1. Little interest or pleasure in doing things: not at all 2. Feeling down, depressed, or hopeless: not at all Total score: 0 PHQ-9 3. Trouble falling or staying asleep, or sleeping too much: Not at all 4. Feeling tired or having little energy: Not at all 5. Poor appetite or overeating: Not at all 6. Feeling bad about yourself - or that you are a failure or have let yourself or your family down: Not at all 7. Trouble concentrating on things, such as reading the newspaper or watching television: Not at all 8. Moving or speaking so slowly that other people could have noticed? - Or the opposite - being so fidgety or restless that you have been moving around a lot more than usual: not at all 9. Thoughts that you would be better off or of hurting yourself in some way: Not at all Total score: 0 If you checked off any problems, how difficult have these problems made it for you to do your work, take care of things at home, or get along with other people?: not difficult at all Source: Developed by Drs. Pete Rodríguez, Danii Nava, Bandar Wright and colleagues, with an educational luís from [employer]. Depression screen completed yes Social History Living Situation History Lives With: Family Housing: House Tobacco History Smoking Status: Never smoker Second Hand Smoke Exposure: No Alcohol History Alcohol Intake: Never Domestic Abuse History Do You Feel Safe at Home: Yes History of Present Illness HPI Narrative Abby Stover presents for postoperative follow-up approximately 2 months after surgery performed in early December. She reports experiencing some mild cramping and muscle discomfort in the surgical area, describing the discomfort as related to muscle stiffness following her procedure. She also reports experiencing some weakness and is interested in taking vitamins. The patient indicates she is performing her usual activities at home and work duties. She has been on medical leave for 2 months following her surgery, with plans to return to work after completing the full leave period around February 26. The patient plans to resume exercising as cleared by physician. ROS: General: Positive for weakness. Gastrointestinal: Positive for cramping. Musculoskeletal: Positive for muscle stiffness and discomfort. Exam General General Appearance: alert, in no apparent distress and healthy appearing Head Head exam: atraumatic Neck Neck exam: Present normal inspection and trachea midline Chest Chest inspection: Present normal inspection and symmetric chest wall rise External exam: Present normal external exam; Absent tenderness Neuro Neurological exam: Present oriented X3 Psych Psychiatric exam: Present normal affect and normal mood Office Procedures OBC Clinic LOC & Office Proc's Nursing/Assessment Patient Status: Established Patient OB Clinic Nursing Assessment: Medication Reconciliation, Update PMH in EMR and Vital Signs OB Clinic Coordination of Care: Consent,records obtained, informed consent, Education Simp Pt/Fam, Lab and Imaging orders, Results/Orders obtained and Staff clarify orders Established Patient Charge Established Patient Point Assignment: 80 Established Patient Point Charge: EP Level 3 (80-115) Assessment & Plan Diagnosis / Problem List (1) Dyspareunia due to medical condition in female: Status: Acute (2) S/P DAKOTAH (total abdominal hysterectomy): Status: Acute (3) Pelvic and perineal pain: Status: Acute (4) Abnormal uterine and vaginal bleeding, unspecified: Status: Acute (5) Intramural leiomyoma of uterus: Status: Acute Plan Postoperative Recovery Status: - Patient is approximately 2 months post-surgery performed in early December. - Surgical healing is complete. - Reports mild cramping, which is normal for this postoperative timeframe. - Concentrated urine overnight may be contributing to discomfort. - Reports some weakness. Plan: - Increase water intake to address concentrated urine. - Take regular multivitamin such as women's one-a-day for reported weakness. - Cleared for all activities including exercise, housework, and sexual activity without restrictions. - Return to work after completing 2 months postoperatively (approximately February 26). - Wear supportive belt initially when returning to work, then discontinue as tolerated. - Follow-up appointment in 3 months to assess progress. Postoperative Muscle Stiffness: - Patient experiencing muscle stiffness and pulling sensation, which is expected after surgery. - Discomfort is related to muscle stiffness that develops postoperatively. Plan: - Increase activity and movement to improve muscle flexibility. - Symptoms expected to completely resolve by 3 months postoperatively.
[2025-02-11 09:58] VITALS: BP 125/81; PULSE 94; RESP 18; TEMP 36.2; O2SAT 98
== END 2025-02-11 09:58 | disposition home or self-care (01) ==
LOC: HODSOBC 09:12
PROVIDERS: Supervising Provider Obstetrics & Gynecology; Visit Provider Obstetrics & Gynecology
DX: Z48.816 Encounter for surgical aftercare following surgery on the genitourinary system (principal); R53.1 Weakness; R25.2 Cramp and spasm; Z87.42 Personal history of other diseases of the female genital tract; Z90.710 Acquired absence of both cervix and uterus
CPT/HCPCS: 99213; G0463